=== PATIENT | male | born 1965 | race Caucasian/White ===

== ENCOUNTER 2025-01-03 11:28 | Emergency (ER) | payer OTHER, SELFPAY ==
--- NOTE | ~2025-01-03 | US_ITS ---
EXAMINATION: US LOWER EXTREMITY VEINS LIMITED FOLLOW UP LEFT HISTORY: calf pain and swelling COMPARISON: There are no prior studies available for comparison. TECHNIQUE: Duplex and color Doppler sonographic examination of the deep venous system of the left lower extremity was performed. FINDINGS: The common femoral, superficial femoral, and popliteal veins are patent demonstrating normal compressibility, spontaneous flow, and augmentation. There is a normal color and spectral Doppler waveform appearance of the visualized deep venous system above the knee. The posterior tibial and peroneal veins are patent. US/US venous duplex LE LT IMPRESSION: No evidence of acute DVT in the left lower extremity. Electronically signed by: Nikhil Barker MD 01/03/2025 12:42 PM EDT
[2025-01-03 11:41] VITALS: BP 115/59; PULSE 75; RESP 16; TEMP 36.1; O2SAT 99; BMI 29.9
--- NOTE | 2025-01-03 11:41 | ED_ITS ---
HPI - General Adult General Chief complaint: Extremity Problem Stated complaint: quest DVT sent from urgent card Time Seen by Provider: 01/03/25 13:44 Source: patient, RN notes reviewed and old records reviewed Mode of arrival: ambulatory Limitations: no limitations History of Present Illness ED Provider: [facility] narrative: Patient is a 59-year-old male presenting with complaint of left calf pain and swelling since last night. Denies any chest or dyspnea. Referred from urgent care to rule out DVT. Patient states that he is very active and exercises regularly. Denies any known injury or trauma. He states that swelling was worse last night but improved with elevation of his leg. MD complaint: Left calf pain Onset (ago): hour(s) Related Data Allergies Allergy/AdvReac Type Severity Reaction Status Date / Time No Known Allergies Allergy Verified 01/03/25 11:43 Review of Systems 2 Review of Systems: As per HPI Yes all other systems are reviewed and are negative Constitutional: Constitutional: Reports as per HPI Physical Exam ED Vital Signs: Vital Signs - 24 hr 01/03/25 11:41 Temperature 96.9 F Pulse Rate 75 Respiratory Rate 16 Blood Pressure 115/59 L Pulse Oximetry 99 Oxygen Delivery Method Room Air BMI result Body Mass Index 29.9 Vital signs have been reviewed and appear to be correct. Blood pressure normal. Heart rate normal. Respiratory rate normal. Temperature normal. Oxygen saturation normal. Const General: cooperative, healthy appearing and no acute distress Orientation/consciousness: oriented to person, oriented to place, oriented to time and patient oriented x3 Limitations: no limitations HENMT Head: Yes normocephalic and Yes atraumatic Ears: external ears normal General nose exam: Normal external nose present Face and sinus: Yes face symmetric Mouth: oropharynx normal and moist mucous membranes Throat: Yes uvula midline Eyes Pupils: Equal, round and reactive pupils present Neck Neck: Yes normal visual inspection and Yes supple Resp Effort & Inspection: normal respiratory effort and able to speak in complete sentences Auscultation: clear to auscultation bilaterally Cardio Rate: regular rate Rhythm: regular rhythm Heart sounds: S1 normal heart sound present and S2 normal heart sound present GI Palpation (GI): Soft to palpation and nontender Auscultation: normoactive bowel sounds General: Yes no CVA tenderness Back/Spine/Pelvis Back: no CVA tenderness Skin General skin exam: elasticity normal and turgor normal Neuro General: oriented to person, oriented to place, oriented to time, patient oriented x3, moves all extremities, no focal motor deficits and CN's II-XI intact bilaterally Cranial nerves: Yes Equal, round and reactive pupils present Cognition (Neuro): normal cognition Extrem General: Yes full ROM, Yes no pedal edema and Yes no calf tenderness Left lower extremity: lower leg Details: normal to inspection and tenderness Location: of the posterior calf (posteriomedial calf); no erythema, no localized swelling, no palpable cords and no ecchymosis and foot Details: normal capillary refill and vascular exam Details: dorsalis pedis pulse present and posterior tibial pulse present Psych Mental Status: mental status grossly normal Affect: normal affect Thought process: Normal thought process present Course Course Course Narrative: This is a rapid medical exam performed by Ilana Stark NP: Additional HPI, ROS, PE not included below will be deferred to primary provider. Patient is a 59-year-old male presenting with complaint of left calf pain and swelling since last night. Denies any CP or dyspnea. Referred from urgent care.\ Plan: labs, U/S Medical Decision Making Medical Decision Making [facility] Narrative: Patient is a 59-year-old male presenting with complaint of left calf pain and swelling since last night. On exam patient is awake, A+Ox3, VS WNL, afebrile, normal neurological exam without focal deficits, physical exam findings as above. Given reported symptoms and physical exam findings, initial differential includes but is not limited to DVT, Ba's cyst, muscle strain. Labs unremarklable. U/S notable for no evidence of DVT or Ba's cyst. My interpretation is in agreement with the radiologist's interpretation. Results discussed with patient and all questions answered. Advised if symptoms persist after a week, he may need repeat ultrasound. He states that he has a physical with his PCP on Tuesday, discussed that if his symptoms persist he should mention this at that appointment. Return precautions discussed. Patient verbalized understanding of and agreement with plan. Differential Diagnosis Differential Diagnoses: The differential diagnosis associated with the presentation includes As per [facility] Admission/Observation Consideration of admission/observation: Escalation of care including admission/observation considered Patient would have been admitted to the hospital had their clinical presentation warranted hospital admission. Lab Data [facility] Lab Attestation statement: I reviewed the patient's lab results. as per [facility] 01/03/25 12:31 01/03/25 12:31 Labs: Lab Results 01/03/25 Range/Units 12:31 WBC 6.2 (4.8-10.8) X10*3/uL RBC 4.63 (4.60-5.80) X10*6/uL Hgb 14.5 (14.0-18.0) g/dl Hct 44.5 (42.0-52.0) % MCV 96.1 (80.0-98.0) fL MCH 31.3 (27.0-33.0) pg MCHC 32.6 (31.0-36.0) g/dl RDW 13.5 (11.0-16.0) % Plt Count 183 (160-400) X10*3/uL MPV 10.4 (9.4-12.4) fL Immature Gran % (Auto) 0.3 (0.0-0.4) % Neut % (Auto) 61.2 (45-73) % Lymph % (Auto) 22.2 (20-40) % [place] % (Auto) 9.2 (2-11) % Eos % (Auto) 6.6 H (0-4) % Baso % (Auto) 0.5 (0-2) % Lymph # (Auto) 1.4 (1.2-4.9) X10*3/uL [place] # (Auto) 0.6 (0.1-1.2) X10*3/uL Eos # (Auto) 0.4 (0.0-0.4) X10*3/uL Baso # (Auto) 0.0 (0.0-0.2) X10*3/uL Abs Immat Gran (auto) 0.02 (0.00-0.03) X10*3/uL Absolute Neuts (auto) 3.8 (2.0-8.3) x10*3/uL Absolute Nucleated RBC 0.000 (0.0-0.012) X10*3/uL Nucleated RBC % (auto) 0.0 (0.0-0.2) /100WBC Sodium 142 (135-145) mmol/L Potassium 4.0 (3.3-5.1) mmol/L Chloride 107 (96-108) mmol/L Carbon Dioxide 27 (22-29) mmol/L Anion Gap 12 (12-20) BUN 13 (9-16) mg/dL Creatinine 1.31 (0.5-1.4) mg/dL Estim Creat Clear Calc 64.2 Estimated GFR 56 Random Glucose 104 (60-115) mg/dL Calcium 8.8 (8.4-10.2) mg/dL Total Bilirubin 0.9 (0.0-1.0) mg/dL AST 17 (5-37) U/L ALT 32 (0-40) U/L Alkaline Phosphatase 83 (39-117) U/L Total Protein 7.0 (6.5-8.0) g/dL Albumin 4.5 (3.5-5.0) g/dL Independent Interpretation I performed an independent interpretation of an: Ultrasound Interpretation: No evidence of DVT to left lower extremity on ultrasound Radiology Impression Discussion of test interpretation with radiology: I have reviewed the radiologist's reading. Radiologist Impression: US/US venous duplex LE LT IMPRESSION: No evidence of acute DVT in the left lower extremity. External Record Review External record reviewed: Inpatient record, Office record and Outpatient record Discharge Plan Discharge Clinical Impression: Pain of left calf Patient Disposition: Home, Self-Care Instructions: Muscle Strain (DC), Leg Pain (ED) Additional Instructions: You were evaluated in the emergency department today for left calf pain. Your ultrasound did not show evidence of a DVT (blood clot). Your pain is likely due to a muscle strain. We recommend that you take 650 mg of Tylenol or 600 mg of ibuprofen every 6 hours as needed for pain. You can also perform gentle stretching exercises. If your pain worsens or persists beyond the next week, or if you develop redness and increased swelling, we would recommend a repeat ultrasound. This could be scheduled with your primary care provider. Return to the emergency department with any new or concerning symptoms. Print Language: Thai
[2025-01-03 12:35] LABS: MANUAL DIFF FLAG NO
[2025-01-03 12:36] LABS: Hematocrit 44.5 % (42.0-52.0); Hemoglobin 14.5 g/dl (14.0-18.0); Imm Gran Abs Auto 0.02 X10*3/uL (0.00-0.03); Imm Gran Pct Auto 0.3 % (0.0-0.4); Lymphocytes Absolute Auto 1.4 X10*3/uL (1.2-4.9); Mean Corpuscular HGB Conc 32.6 g/dl (31.0-36.0); Mean Corpuscular Hemoglobin 31.3 pg (27.0-33.0); Mean Corpuscular Volume 96.1 fL (80.0-98.0); NRBC Abs Auto 0.000 X10*3/uL (0.0-0.012); NRBC Pct Auto 0.0 /100WBC (0.0-0.2); Platelet Count 183 X10*3/uL (160-400); Red Blood Count 4.63 X10*6/uL (4.60-5.80); White Blood Count 6.2 X10*3/uL (4.8-10.8)
[2025-01-03 12:58] LABS: Alanine Aminotransferase 32 U/L (0-40); Albumin Level 4.5 g/dL (3.5-5.0); Alkaline Phosphatase 83 U/L (39-117); Anion Gap 12 (12-20); Aspartate Amino Transferase 17 U/L (5-37); Blood Urea Nitrogen 13 mg/dL (9-16); Calcium 8.8 mg/dL (8.4-10.2); Carbon Dioxide 27 mmol/L (22-29); Chloride 107 mmol/L (96-108); Creatinine Clr Calc Pharmacy 64.2; Estimated Glomerular Filt Rate 56; Potassium 4.0 mmol/L (3.3-5.1); Sodium 142 mmol/L (135-145); Total Protein 7.0 g/dL (6.5-8.0)
--- OUTSIDE RECORDS SUMMARY | 2025-01-03 13:57 | XMS_ITS | Clinical Summary ---
Author Organization [facility] Address [address] [place] [id number] Care Team Providers Care Nursing Agency Manager Name Role Phone Willy Bearden MD Primary Care Provider [phone] Allergies No known active allergies Medications TARIQ CONTOUR NEXT TEST strip 5 06/11/2016 Act nikole metFORMIN (GLUCOPHAGE) 1000 MG tablet 3 06/07/2016 Acti ve venlafaxine (EFFEXOR-XR) 150 MG 24 hr capsule 1 08/16/2016 Ac tive venlafaxine (EFFEXOR-XR) 37.5 MG 24 hr capsule 1 08/02/2016 Active XIAFLEX 0.9 MG Recon Soln injection 11/18/2016 Active VICTOZA 18 MG/3ML injection 0 12/13/2016 Ac tive EASY TOUCH PEN NEEDLES 31G X 5 MM Misc 5 12/17/2016 Active atorvastatin (LIPITOR) 20 MG tablet Take 20 mg by mouth daily. Active lisinopril (PRINIVIL,ZeSTRI L) 20 MG tablet Take 20 mg by mouth daily. Active Family History Relation Name Status Comments Father Alive Mother Alive Social History Tobacco Use Types Packs/Day Years Used Date Smoking Tobacco: Never Smokeless Tobacco: Never Alcohol Use Standard Drinks/Week Comments No 0 (1 standard drink = 0.6 oz pur e alcohol) Sex and Gender Information Value Date Recorded Sex Assigned at Not on file Legal Sex Male 12:13 PM EDT Gender Identity Not on file Sexual Orientation Not on file Last Filed Vital Signs Vital Sign Reading Time Taken Comments Blood Pressure - - Pulse - - Temperature - - Respiratory Rate 16 06/16/2017 3:38 PM EST Oxygen Saturation - - Inhaled Oxygen Concentration - - Weight 92.1 kg (203 lb) 06/16/2017 3:38 PM EST Height 172.7 cm (5' 8 ) 06/16/2017 3:38 PM EST Body Mass Index 30.87 06/16/2017 3:38 PM EST Plan of Treatment Health Maintenance Due Date Last Done Comments Hepatitis C Virus Screening 1965 HIV Screening 11/19/1976 DTaP/Tdap/Td Vaccines (1 - Tdap) 11/19/1982 Colonoscopy 11/19/2008 Pneumococcal Vaccines 50+ (1 of 1 - PCV) 11/19/2013 Zoster (Shingles) Vaccine (1 of 2) 11/19/2013 COVID-19 Vaccine (1 - 2023-2 5 season) 2024 Influenza Vaccine 12/28/2024 RSV Vaccine 60 years and old er and Patients (1 - 1-dose 75+ series) 11/19/2038 Hepatitis B Vaccines Aged Out No long er eligible based on patient's age to complete this topic Insurance [facility] Care Teams Nursing Agency Manager Relationship Specialty Start Date End Date Willy Bearden MD [address] [place] [id number] PCP - General Internal Medicine 08/27/16
[2025-01-03 14:00] VITALS: BP 115/59; PULSE 75; RESP 16; TEMP 36.1; O2SAT 99
== END 2025-01-03 14:00 | disposition home or self-care (01) ==
PROVIDERS: Registered Nurse Emergency; Emergency Provider Emergency Medicine; PCP Internal Medicine
DX: M79.662 Pain in left lower leg (principal); M79.89 Other specified soft tissue disorders
CPT/HCPCS: 36415; 80053; 85025; 93971; 99282; 99284

== ENCOUNTER → 2025-01-03 11:44 | Outpatient (BNV) | payer OTHER, SELFPAY | PROVIDERS: PCP Internal Medicine; Visit Provider Radiology Diagnostic Radiology | DX: R22.42 Localized swelling, mass and lump, left lower limb (principal) | CPT/HCPCS: 93971 ==